=== PATIENT | female | born 1975 | race Caucasian/White ===

== ENCOUNTER → 2017-04-03 | Day surgery (SDC) | payer OTHER ==
[~2017-04-03] VITALS: Ht 165.1 cm; Wt 61.0 kg
[~2017-04-03] MED LIST: ALBUAER3 INH; AMPICILLIN/SULBAC 3 GM/NS 100 ML IV SCH; BACITRACIN TOP OINT 15 GM TUBE ONE; CETI10 PO; CHLORHEXIDINE GLUCONATE 2 % 1 PACK (2 CLOTHS) TOPICAL PRN; FLUT1SPR5 EACH NARE; HYDR-3580 PO; INSULIN HUMAN REGULAR 1,000 UNITS/10 ML VIAL SQ PRN; LACTATED RINGER'S 1000 ML IV PRN; LIDOCAINE 1%/EPINEPHrine 1:100,000 SOLN 30 ML VIAL ONE; METOPROLOL TARTRATE 25 MG TAB PO PRN; MIDAZOLAM HCL 2 MG/2 ML VIAL ONE; MONT10TA2 PO; ONDANSETRON HCL 4 MG/2 ML VIAL IV PUSH ONE; OXYMETAZOLINE HCL 0.05% 15 ML NASAL SPRAY ONE; POVIDONE IODINE 5% (ANTISEPSIS KIT) 4 APPLICATIONS EACH NARE PRN; PREN29TA PO; PROPOFOL 200 MG/20 ML AMP IV ONE; SODIUM CHLORID 0.9% 500 ML IV PRN; VITA250T3 PO; ZINC220T PO
[2017-04-03 08:38] VITALS: BP 114/71; PULSE 67; RESP 16; TEMP 98; O2SAT 100
[2017-04-03 12:59] VITALS: PULSE 86
[2017-04-03 14:25] VITALS: BP 112/64; PULSE 77; RESP 16; TEMP 98; O2SAT 100
--- NOTE | 2017-04-09 08:17 | MP ---
cc: IZZY MOLINA M.D. DATE OF SURGERY: April 03, [address] Izzy Molina PREOPERATIVE DIAGNOSIS 1. Chronic pansinusitis. 2. Nasal airway obstruction. 3. Nasal septal deviation. 4. Hypertrophy of inferior turbinates. POSTOPERATIVE DIAGNOSIS 1. Chronic pansinusitis. 2. Nasal airway obstruction. 3. Nasal septal deviation. 4. Hypertrophy of inferior turbinates. OPERATION PERFORMED 1. Open repair nasoseptal fracture. 2. Bilateral submucosal resection of inferior turbinates. 3. Bilateral total endoscopic ethmoidectomy. 4. Bilateral endoscopic maxillary antrostomy. 5. Bilateral endoscopic exploration of frontal sinus duct with balloon sinuplasty. 6. Bilateral endoscopic sphenoidotomy. INDICATIONS The indications are documented in the history and physical. DESCRIPTION OF OPERATION The patient was taken to OR #2 and placed in the supine position. Following induction of general anesthesia and intubation the nose was packed bilaterally with cotton pledgets saturated in 0.05% Oxymetazoline. The nasal septal mucosa and the inferior turbinates were injected with a total of 10 mL of 1% Xylocaine with epinephrine 1:100,000. She was then prepped and draped for surgery. The packing was removed and a garland-transfixion incision was made in the left nasal vestibule and through this incision mucosa of septum was elevated bilaterally as far as the junction of the bony and cartilaginous septum. This was followed by removal of a cumulative area of 2 x 2 cm of quadrangular cartilage preserving 1.5 cm dorsal and caudal cartilaginous struts. When this was completed the mucosa was elevated from the bony septum and this was removed with Ruano Nix forceps. The maxillary crest was removed using a 6-mm Grainfield chisel. The incision was then closed with a running suture of 4-0 Chromic and the mucosal layers of septum were approximated to each other with a quilting stitch of 4-0 plain gut. The inferior turbinates were then fractured out medially and stab incisions were made along their inferior surfaces. Through these incisions the submucosal soft tissue was reduced using a curette and preserving the conchal bone. The incisions were then cauterized using suction Bovie at 35 beyer and the remnants of the inferior turbinates were then re-lateralized to the lateral nasal wall. From this point forward the operation was completed using endoscopic visualization. Additional injections of lidocaine and epinephrine were made into the attachments of the middle turbinates and the uncinate processes and then the ethmoid cells. Left side was addressed first beginning with amputation of the middle turbinate using through cutting Blakesley forceps and the power microdebrider followed by removal of the uncinate process and then exenteration of the anterior and posterior ethmoid cells using blunt and powered dissection. This was carried back as far as the rostrum of the sphenoid. When this was completed the maxillary ostium was probed using a 3-mm olive tip suction and the ostium was enlarged using Stammberger forceps and the power debrider. The sphenoid sinus was addressed next using a #10 suction and the rostrum was probed and the ostium was identified. This was then enlarged using the blunt penetration and the power microdebrider. The right side was then operated in the same fashion beginning with amputation of the middle turbinate, uncinectomy and exenteration of anterior and posterior ethmoid cells, followed by enlargement of the maxillary ostium and the sphenoid ostium. Both sides were then irrigated and suctioned and packed with cotton pledgets saturated in Oxymetazoline. These remained in place while the frontal sinus dilation was completed using the balloon technique. The left side was addressed first. The guidewire was advanced up into the frontal sinus. The balloon was advanced over the wire and inflated at three levels, superiorly at the mid point of the duct and inferiorly at the junction with the anterior ethmoids. Each level was inflated to a pressure of 12 atmospheres, this was performed bilaterally. The balloon was removed and the cotton pledgets packing was removed from the sinuses. They were once again irrigated and suctioned. The ethmoids were filled with Stammberger sinus foam and the inferior one half of the nose was then filled with 5.5 cm rapid rhino nasal packs inflated on each side was 5 mL of air and the procedure was terminated. The patient was reversed from anesthesia and taken to recovery in good condition. There were no complications. Blood loss was 200 mL. MD HOLLEY Newell/LESLI /6:28 AM /8:02 AM
== END | disposition home or self-care (01) ==
LOC: PHSDC 08:20
PROVIDERS: ATTEND Otolaryngology
DX: J32.4 Chronic pansinusitis (principal); J34.2 Deviated nasal septum; J34.3 Hypertrophy of nasal turbinates; J35.01 Chronic tonsillitis
CPT/HCPCS: 30140; 30520; 31255; 31256; 31276; 31287; 88305; 88311; J0295; J2250; J2405; J3010; J7120

== ENCOUNTER 2017-05-25 13:01 | Emergency (ER) | payer OTHER ==
[~2017-05-25] VITALS: Ht 165.1 cm; Wt 60.0 kg
[~2017-05-25 13:01] MED LIST changes: -AMPICILLIN/SULBAC 3 GM/NS 100 ML IV SCH; -BACITRACIN TOP OINT 15 GM TUBE ONE; -CHLORHEXIDINE GLUCONATE 2 % 1 PACK (2 CLOTHS) TOPICAL PRN; -INSULIN HUMAN REGULAR 1,000 UNITS/10 ML VIAL SQ PRN; -LACTATED RINGER'S 1000 ML IV PRN; -LIDOCAINE 1%/EPINEPHrine 1:100,000 SOLN 30 ML VIAL ONE; -METOPROLOL TARTRATE 25 MG TAB PO PRN; -MIDAZOLAM HCL 2 MG/2 ML VIAL ONE; -ONDANSETRON HCL 4 MG/2 ML VIAL IV PUSH ONE; -OXYMETAZOLINE HCL 0.05% 15 ML NASAL SPRAY ONE; -POVIDONE IODINE 5% (ANTISEPSIS KIT) 4 APPLICATIONS EACH NARE PRN; -PROPOFOL 200 MG/20 ML AMP IV ONE; -SODIUM CHLORID 0.9% 500 ML IV PRN
[2017-05-25 13:04] VITALS: BP 134/67; PULSE 86; RESP 12; TEMP 98.6; O2SAT 99
--- NOTE | 2017-05-25 13:10 | PD ---
Physical Exam Date Seen by Provider: May 25, 2017 Time Seen by Provider: 13:06 Narrative Pt is a 41 year old female presenting to the ED for evaluation of dizziness, weakness, arm numbness. Pt states she feels off balance when she walks. Last night she reports feeling palpitations and SOB. Symptoms started after her sinus surgery 1 month ago. Pt denies any fevers, chills, headaches. VSS. Data Data Last Documented VS Vital Signs Date Time Temp Pulse Resp B/P Pulse Ox O2 Delivery O2 Flow Rate FiO2 05/25/17 13:04 98.6 86 12 134/67 99 MDM Supervised Visit with ELISABETH: Kira Steward May 25, 2017 13:10
[2017-05-25 13:36] LABS: AUTOMATED NEUTROPHIL # 6.3 TH/MM3 (1.8-7.7); BASOPHIL # 0.1 TH/MM3 (0-0.2); BASOPHIL % 0.8 % (0.0-2.0); EOSINOPHIL % 0.2 % (0.0-4.0); HEMATOCRIT 42.1 % (35.0-46.0); HEMO FLAGS DIFF FINAL; LYMPH % 17.5 % (9.0-44.0); LYMPHOCYTE # 1.5 TH/MM3 (1.0-4.8); MEAN CORPUSCULAR HEMOGLOBIN 29.7 PG (27.0-34.0); MONO % 6.5 % (0.0-8.0); PLATELET COUNT 318 TH/MM3 (150-450); RED BLOOD COUNT 4.68 MIL/MM3 (4.00-5.30); WHITE BLOOD COUNT 8.4 TH/MM3 (4.0-11.0)
[2017-05-25 13:49] LABS: BACTERIA, URINE OCC /hpf; BLOOD, URINE NEG (NEG); COMMENT (UR) CULT NOT INDICATED; CULTURE IF INDICATED CULT NOT INDICATED; GLUCOSE,URINE NEG (NEG); KETONE, URINE 10 mg/dL (NEG); MUCUS URINE FEW /lpf (OCC); NITRITE,URINE NEG (NEG); SQUAMOUS EPITHELIAL CELL URINE 3 /hpf (0-5); URINE COLOR YELLOW (YELLW/STRAW)
[2017-05-25 14:01] LABS: ALT (GPT) 15 U/L (10-53); ANION GAP 9 MEQ/L (5-15); AST (GOT) 10 U/L (15-37); BICARBONATE 27.4 MEQ/L (21.0-32.0); BLOOD UREA NITROGEN 8 MG/DL (7-18); CHLORIDE 103 MEQ/L (98-107); GLOMERULAR FILTRATION RATE 81 ML/MIN (>89); POTASSIUM 3.6 MEQ/L (3.5-5.1); SODIUM (NA) 139 MEQ/L (136-145)
[2017-05-25 14:04] LABS: ALKALINE PHOSPHATASE 62 U/L (45-117); TOTAL BILIRUBIN ADULT 0.4 MG/DL (0.2-1.0)
[2017-05-25 14:17] LABS: CREATINE KINASE 59 U/L (26-192)
--- NOTE | 2017-05-25 16:06 | PD ---
HPI Chief Complaint: Dizziness Time Seen by Provider: 15:16 Travel History International Travel<30 days: No Contact w/Intl Traveler<30days: No Traveled to known affect area: No History of Present Illness HPI Is a 41 year-old woman who presents to the emergency department complaining of multiple complaints. She has shocklike sensation and paresthesias in all 4 extremities. She describes a feeling of warmth and flushing in her extremities and the back of her neck. She is very worried that something is wrong. She just started treatment for anxiety and depression. She also recently had sinus surgery, as well as gallbladder surgery. She just started Lexapro. History Past Medical History Narrative Medical Sinus symptoms Bronchiectasis LMP: 05/08/17 Social History Alcohol Use: No Tobacco Use: No Allergies-Medications (Allergen,Severity, Reaction): Coded Allergies: Aspirin (Verified Allergy, Severe, Hives, 04/03/17) Reported Meds & Prescriptions Reported Meds & Active Scripts Active Reported Proair Hfa 8.5 GM Inh (Albuterol Sulfate) 90 Mcg/Act Aer 1 Puff INH Q4H PRN 108 mcg/actuation Vitamin C (Ascorbic Acid) 250 Mg Tab 250 Mg PO Zinc Sulfate 220 Mg Tab 220 Mg PO DAILY Singulair (Montelukast Sodium) 10 Mg Tab 10 Mg PO DAILY Flonase Nasal [place] (Fluticasone Nasal [place]) 50 Mcg/Act [place] 50 Mcg EACH NARE BID Cetirizine (Cetirizine HCl) 10 Mg Tab 10 Mg PO DAILY Plus Iron 29-1 mg ( Vit-Iron Carbonyl) 1 Tab Tab 1 Tab PO DAILY Hydrocodone-Acetaminophen 7.5-325 mg Tab 1 Tab PO Q4H PRN Review of Systems Except as stated in HPI: all other systems reviewed are Neg Physical Exam Narrative GENERAL: 41 year-old woman, no acute distress. SKIN: Focused skin assessment warm/dry. HEAD: Atraumatic. Normocephalic. CARDIOVASCULAR: Regular rate and rhythm. No murmur appreciated. RESPIRATORY: No accessory muscle use. Clear to auscultation. Breath sounds equal bilaterally. GASTROINTESTINAL: Abdomen soft, non-tender, nondistended. Hepatic and splenic margins not palpable. MUSCULOSKELETAL: No obvious deformities. No edema. NEUROLOGICAL: Awake and alert. No obvious cranial nerve deficits. Motor grossly within normal limits. Normal speech. PSYCHIATRIC: Appropriate mood and affect; insight and judgment normal. Data Data Last Documented VS Vital Signs Date Time Temp Pulse Resp B/P Pulse Ox O2 Delivery O2 Flow Rate FiO2 05/25/17 13:04 98.6 86 12 134/67 99 Orders Electrocardiogram (05/25/17 13:11) Ed Urine Pregnancytest Poc (05/25/17 13:11) Complete Blood Count With Diff (05/25/17 13:11) Comprehensive Metabolic Panel (05/25/17 13:11) Ckmb (Isoenzyme) Profile (05/25/17 13:11) Troponin I (05/25/17 13:11) Urinalysis - C+S If Indicated (05/25/17 13:11) Magnesium (Mg) (05/25/17 15:26) Labs Laboratory Tests Test 05/25/17 13:20 White Blood Count 8.4 TH/MM3 Red Blood Count 4.68 MIL/MM3 Hemoglobin 13.9 GM/DL Hematocrit 42.1 % Mean Corpuscular Volume 90.0 FL Mean Corpuscular Hemoglobin 29.7 PG Mean Corpuscular Hemoglobin 33.0 % Concent Red Cell Distribution Width 13.0 % Platelet Count 318 TH/MM3 Mean Platelet Volume 8.4 FL Neutrophils (%) (Auto) 75.0 % Lymphocytes (%) (Auto) 17.5 % Monocytes (%) (Auto) 6.5 % Eosinophils (%) (Auto) 0.2 % Basophils (%) (Auto) 0.8 % Neutrophils # (Auto) 6.3 TH/MM3 Lymphocytes # (Auto) 1.5 TH/MM3 Monocytes # (Auto) 0.5 TH/MM3 Eosinophils # (Auto) 0.0 TH/MM3 Basophils # (Auto) 0.1 TH/MM3 CBC Comment DIFF FINAL Differential Comment Urine Color YELLOW Urine Turbidity CLEAR Urine pH 6.0 Urine Specific [place] 1.009 Urine Protein NEG mg/dL Urine Glucose (UA) NEG mg/dL Urine Ketones 10 mg/dL Urine Occult Blood NEG Urine Nitrite NEG Urine Bilirubin NEG Urine Urobilinogen LESS THAN 2.0 MG/DL Urine Leukocyte Esterase NEG Urine RBC LESS THAN 1 /hpf Urine WBC 1 /hpf Urine Squamous Epithelial 3 /hpf Cells Urine Bacteria OCC /hpf Urine Mucus FEW /lpf Microscopic Urinalysis Comment CULT NOT INDICATED Sodium Level 139 MEQ/L Potassium Level 3.6 MEQ/L Chloride Level 103 MEQ/L Carbon Dioxide Level 27.4 MEQ/L Anion Gap 9 MEQ/L Blood Urea Nitrogen 8 MG/DL Creatinine 0.79 MG/DL Estimat Glomerular Filtration 81 ML/MIN Rate Random Glucose 82 MG/DL Calcium Level 9.6 MG/DL Total Bilirubin 0.4 MG/DL Aspartate Amino Transf 10 U/L (AST/SGOT) Alanine Aminotransferase 15 U/L (ALT/SGPT) Alkaline Phosphatase 62 U/L Total Creatine Kinase 59 U/L Troponin I LESS THAN 0.02 NG/ML Total Protein 8.6 GM/DL Albumin 4.5 GM/DL [facility] Medical Decision Making Medical Screen Exam Complete: Yes Emergency Medical Condition: Yes Differential Diagnosis Anxiety, depression, electrolyte abnormality, weakness, other Narrative Course Medical decision making This is symmetrically preoccupied 41 year-old woman with depression and anxiety symptoms. Think her paresthesias are from hyperventilation and anxiety. She is worried about everything from nerve entrapment to MS to brain tumors. She is extremely emotionally labile. She is likely having symptoms completely related to anxiety and depression. You have to wonder for previous sinus surgeries and gallbladder surgeries were really related to this as well. She required a lot of reassurance. I don't think she has any symptoms suggestive of a mass. She needs outpatient follow-up. I encouraged her to focus on her function and her mood. I spent about 25 minutes in the room talking to her and her . Diagnosis Primary Impression: Anxiety Additional Impression: Depression Additional Instructions: Follow-up with your primary doctor. Return to the emergency department for any new or worsening symptoms. Med/Other Pt SpecificInfo: No Change to Meds Disposition: 01 DISCHARGE HOME Condition: Stable Dane Dwyer MD May 25, 2017 16:06
--- NOTE | 2017-05-26 17:03 | EKG ---
Date Performed: 05/25/2017 Time Performed: 16:03:08 PTAGE: 41 years EKG: Sinus rhythm NORMAL ECG INTERPRETATION BASED ON A DEFAULT AGE OF 41 YEARS NO PREVIOUS TRACING DOCTOR: Andrez Rodriguez Interpretating Date/Time 05/26/2017 17:03:16
== END 2017-05-25 16:27 | disposition home or self-care (01) ==
LOC: NEPD 13:01
DX: F41.9 Anxiety disorder, unspecified (principal); F32.9 Major depressive disorder, single episode, unspecified
CPT/HCPCS: 80053; 81001; 82550; 83735; 84484; 85025; 93005